=== PATIENT | female | born 1985 ===

== ENCOUNTER 2024-03-05 08:29 | Outpatient (CLI) | payer OTHER ==
[2024-03-05 09:46] LABS: PH,URINE 6.5 (5.0-8.0); URINE APPEARANCE Cloudy; URINE BILIRRUBIN Negative (NEGATIVE); URINE BLOOD Large; URINE COLOR Orange; URINE GLUCOSE Negative (NEGATIVE); URINE KETONE Negative (NEGATIVE); URINE LEUKOCYTE Small; URINE NITRATE Negative; URINE PROTEIN 30 (NEGATIVE); URINE UROBILINOGEN 0.2 E.U./dl
[2024-03-05 09:51] LABS: HEMATOCRIT 38.6 % (36.0-45.00); HEMOGLOBIN 12.8 g/dL (12.0-15.00); MEAN CORPUSCULAR HEMOGLOBIN 27.6 pg (27.00-32.0); MEAN CORPUSCULAR HGB CONC 33.2 g/dl (32.0-36.0); PLATELET COUNT 290 K/uL (150-450); RED BLOOD COUNT 4.65 M/uL (4.00-6.00); RED CELL DISTRIBUTION WIDTH 15.1 % (11.5-14.5); URINE BACTERIA 420.8 uL (0.0-1933); URINE EPITHELIAL CELLS 53.1 uL (0.0-38.8); URINE RBC 3995.9 uL (0.0-20.8)
[2024-03-05 10:37] LABS: ALBUMIN 3.8 gm/dL (3.4-5.0); BILIRUBIN TOTAL 0.47 mg/dL (0.3-1.2); CALCIUM 8.7 mg/dL (8.5-10.1); CREATININE SERUM 0.71 mg/dL (0.55-1.02); GFR 93.14; GLOBULINA 4.1 G/DL (2.4-3.5); POTASSIUM 3.51 mEq/L (3.5-5.1); T4 FREE 0.92 NG/ML (0.76-1.46); TOTAL PROTEIN 7.9 gm/dL (6.4-8.2); TSH 1.2 uIU/mL (0.358-3.74)
== END 2024-03-05 08:30 | disposition home or self-care (01) ==
LOC: LAB 08:29
DX: D64.9 Anemia, unspecified (principal); N39.0 Urinary tract infection, site not specified; E03.9 Hypothyroidism, unspecified; I10 Essential (primary) hypertension; E78.5 Hyperlipidemia, unspecified; E11.9 Type 2 diabetes mellitus without complications

== ENCOUNTER 2024-10-28 06:49 | Outpatient (CLI) | payer OTHER | END 2024-10-28 06:54 | disposition home or self-care (01) | LOC: LAB 06:49 | DX: N83.201 Unspecified ovarian cyst, right side (principal); R10.2 Pelvic and perineal pain; N80.121 Deep endometriosis of right ovary; N91.5 Oligomenorrhea, unspecified ==

== ENCOUNTER → 2025-01-09 07:06 | Outpatient (CLI) | payer OTHER ==
[2025-01-09 07:53] LABS: BASO % 0.7 % (0.1-1.2); EOS # 0.17 (0.04-0.54); EOS % 2.3 % (0.7-7.0); LYMPH # 2.52 (1.18-3.74); LYMPH % 33.5 % (19.3-53.1); MEAN PLATELET VOLUME 9.60 fl (9.4-12.4); MONO # 0.40 (0.24-0.82); MONO % 5.3 % (4.7-12.5); NEUT # 4.36 (1.56-6.13); NEUT % 57.9 % (34.0-71.1); RED CELL DISTRIBUTION WIDTH 13.1 % (11.6-14.4)
[2025-01-09 08:18] LABS: URINE APPEARANCE Clear; URINE BILIRRUBIN Negative (NEGATIVE); URINE BLOOD Negative; URINE COLOR Yellow; URINE GLUCOSE Negative (NEGATIVE); URINE KETONE Negative (NEGATIVE); URINE LEUKOCYTE Negative; URINE NITRATE Negative; URINE PROTEIN Negative (NEGATIVE); URINE UROBILINOGEN 0.2 E.U./dl
[2025-01-09 08:25] LABS: URINE BACTERIA 818.3 uL (0.0-1933); URINE EPITHELIAL CELLS 88.2 uL (0.0-38.8); URINE RBC 22.8 uL (0.0-20.8); URINE WBC 14.9 uL (0.0-23.2)
[2025-01-09 08:26] LABS: ALT/SGPT 32.0 U/L (12-78); AST/SGOT 16.0 U/L (15-37); BILIRUBIN TOTAL 0.23 mg/dL (0.3-1.2); BUN CREA RATIO 11.0 (7.0-25.0); CHOL HDL RATIO 4.3 (0-5.0); CREATININE SERUM 0.79 mg/dL (0.55-1.02); GFR 81.89; GLOBULINA 4.1 G/DL (2.4-3.5); GLUCOSE FASTING 108.0 mg/dL (65-100); HDL 47.0 mg/dl (40-60); LDL 130.0 mg/dl (0-130); OSMOLALITY SERUM 280.0 MOSM/KG (275-295); TSH 2.09 uIU/mL (0.358-3.74); VLDL 23.0 (0-39)
[2025-01-09 08:30] LABS: URINE CAST 0.00 uL (0.0-1.40)
[2025-01-09 11:10] LABS: FOLIC ACID 17.87 ng/ml (4.78-20)
[2025-01-10 09:11] LABS: DHEA-SULFATE 94.9 ug/dL (57.3-279.2); LEUTEINIZING HORMONE 6.1 mIU/mL (.)
[2025-01-10 11:08] LABS: PROGESTERONA 9.1 ng/mL (.)
== END | disposition home or self-care (01) ==
LOC: LAB 07:06
DX: E28.2 Polycystic ovarian syndrome (principal); Z00.01 Encounter for general adult medical examination with abnormal findings; E55.9 Vitamin D deficiency, unspecified; D51.9 Vitamin B12 deficiency anemia, unspecified; D52.9 Folate deficiency anemia, unspecified

== ENCOUNTER 2025-01-20 08:36 | Outpatient (CLI) | payer OTHER | END 2025-01-20 09:00 | disposition home or self-care (01) | LOC: TOM 08:36 | PROVIDERS: ATTEND Obstetrics & Gynecology Gynecologic Oncology | DX: D39.10 Neoplasm of uncertain behavior of unspecified ovary (principal) ==